=== PATIENT | female | born 2000 | race Two or more races ===

== ENCOUNTER 2018-05-03 16:27 | Emergency (ER) | payer MEDICAID ==
[~2018-05-03] VITALS: Ht 160 cm; Wt 86.6 kg
[2018-05-03 22:35] VITALS: BP 110/61
== END 2018-05-03 22:45 | disposition home or self-care (01) ==
LOC: ER 16:27
DX: J03.80 Acute tonsillitis due to other specified organisms (principal); B96.89 Other specified bacterial agents as the cause of diseases classified elsewhere

== ENCOUNTER 2018-10-06 19:43 | Observation (INO) | payer MEDICAID ==
[~2018-10-06] VITALS: Ht 160 cm; Wt 102.1 kg
== END 2018-10-06 20:51 | disposition home or self-care (01) | DRG 566 ==
LOC: LDRP 19:43
PROVIDERS: ADMIT Obstetrics & Gynecology; ATTEND Obstetrics & Gynecology
DX: O26.893 Other specified pregnancy related conditions, third trimester (principal); F17.200 Nicotine dependence, unspecified, uncomplicated; R10.2 Pelvic and perineal pain; O99.333 Smoking (tobacco) complicating pregnancy, third trimester; Z3A.39 39 weeks gestation of pregnancy
CPT/HCPCS: 59025; 81002; G0378

== ENCOUNTER → 2019-10-25 | Outpatient (CLI) | payer MEDICAID ==
[~2019-10-25] MED LIST: PREN-96 PO
== END | disposition home or self-care (01) ==
LOC: LDRP 19:22 → UNDOADMOB 19:22 → UNDODISOB 19:50 → OB 19:58 → EDSTATUS 11-09 09:10
PROVIDERS: ATTEND Specialist
DX: Z01.812 Encounter for preprocedural laboratory examination (principal); Z20.828 Contact with and (suspected) exposure to other viral communicable diseases
CPT/HCPCS: G0378

== ENCOUNTER 2019-10-28 04:09 | Inpatient (IN) | payer MEDICAID ==
[2019-10-28] VITALS (15 sets, daily range): BP systolic 99–119; BP diastolic 43–94
[~2019-10-28] VITALS: Ht 160 cm; Wt 106.6 kg
[2019-10-28] MEDS ORDERED: LACTATED RINGER'S 1,000 ML IV SCH (04:26)
[2019-10-28 05:09] LABS: Basophils # (auto) 0.1 10 ^3/uL (0-0.2); Basophils % (auto) 0.8 % (0.0-2.0); Eosinophils # (auto) 0.1 10 ^3/uL (0-0.8); Eosinophils % (auto) 1.6 % (0.0-7.0); Hemoglobin 9.2 g/dL (12.2-16.2); Lymphocytes # (auto) 1.7 10 ^3/uL (0.4-5.4); Lymphocytes % (auto) 20.9 % (10.0-50.0); Mean Corpuscular Hemoglobin 22.8 pg (28.0-32.0); Mean Corpuscular Hgb Conc. 31.6 g/dL (32.0-36.0); Monocytes # (auto) 0.4 10 ^3/uL (0-1.3); Monocytes % (auto) 5.1 % (0.0-12.0); Neutrophils # (auto) 5.9 10 ^3/uL (1.6-8.6); Neutrophils % (auto) 71.6 % (37.0-80.0); Nucleated Red Blood Cells % 0.1 %; Platelet Count (auto) 394 10^3/uL (140-450); Red Blood Cells 4.02 10^6/uL (4.0-5.20); White Blood Cell 8.2 10^3/uL (4.4-10.8)
[2019-10-28 05:16] LABS: Urine Bacteria FEW /hpf (None Seen); Urine Blood Negative /uL (Negative); Urine Mucus FEW (None Seen); Urine Specific Gravity 1.022 (1.001-1.035); Urine WBC 10 /hpf (0 - 5)
[2019-10-28 05:24] LABS: INR 0.93 (0.9-1.15); Partial Thromboplastin Time 25.4 sec (23.0-31.2)
[2019-10-28 05:26] LABS: Albumin 2.4 g/dL (3.4-5.0); Calcium 8.2 mg/dL (8.5-10.1); Potassium 3.5 mmol/L (3.5-5.1)
[2019-10-28 05:30] LABS: Bilirubin, Total 0.2 mg/dL (0.2-1.0); Total Protein 6.8 g/dL (6.4-8.2)
[2019-10-28 05:31] LABS: Alcohol, Urine < 3.0 mg/dL (0-10); Amphetamine Screen, Urine NEGATIVE (NEGATIVE); Barbiturate Scree,Urine NEGATIVE (NEGATIVE); Benzodiazephine Screen, Urine NEGATIVE (NEGATIVE); Cannabinoid Screen, Urine NEGATIVE (NEGATIVE); Cocaine Screen, Urine NEGATIVE (NEGATIVE); Opiate Scree,Urine NEGATIVE (NEGATIVE); Phencyclidine Screen, Urine NEGATIVE (NEGATIVE)
[2019-10-28] MEDS ORDERED: MORPHINE SULF(PF) 0.5MG/ML 10ML VIAL ONE (07:39)
[2019-10-28] MEDS ORDERED: oxyTOCIN 10 UNIT/ML 10ML VIAL ONE (07:41)
[2019-10-28] MEDS ORDERED: PHENYLEPHRINE HCL 10 MG/ML VL ONE (07:41)
[2019-10-28] MEDS ORDERED: ePHEDrine SULFATE 50 MG/ML AMP ONE (07:41)
[2019-10-28] MEDS ORDERED: ceFAZolin 1GM VL ONE (07:41)
[2019-10-28] MEDS ORDERED: TETRACAINE 1% INJ 2 ML VIAL IJ ONE (07:42)
[2019-10-28] MEDS ORDERED: METOCLOPRAMIDE HCL 5MG/ml INJ 2ml VIAL ONE ×2 (08:41→11:02)
[2019-10-28] MEDS ORDERED: NALOXONE HCL 0.4 MG/ML VIAL IV PRN ×2 (09:15)
[2019-10-28] MEDS ORDERED: KETOROLAC TROMETH 30 MG/ML 1ML VIAL IV PRN ×2 (09:15→09:45)
[2019-10-28] MEDS ORDERED: diphenhdrAMINE HCL 50 MG/1 ML VL IV PRN (09:15)
[2019-10-28] MEDS ORDERED: HYDROmorphone HCL 2 MG/ML VL IV PRN ×2 (09:15→09:45)
[2019-10-28] MEDS ORDERED: ONDANSETRON HCL 4 MG/2 ML VIAL IV PRN ×3 (09:15→14:00)
[2019-10-28] MEDS: LACTATED RINGER'S 1,000 ML IV SCH ×2 (09:43→20:41)
[2019-10-28] MEDS ORDERED: ceFAZolin 1GM/50ML 50 ML IV SCH (09:45)
--- NOTE | 2019-10-28 10:30 | NUR ---
Post Op for LDRP: Received patient from PACU via bed to room . Patient A/A/Ox4, abdominal binder and bilateral SCD's are in place, IV fluids placed on pump and infusing per order, incisional site dressing clean/dry/intact and Torrez Catheter to gravity draining clear yellow urine. Incentive Spirometer at bedside and instruction on proper use with return demonstration done by patient.
[2019-10-28] MEDS ORDERED: ETOMIDATE (2MG/ML) 20ML VIAL IV ONE (10:42)
[2019-10-28] MEDS ORDERED: ROCURONIUM 10MG/ML 10ML VIAL IV ONE (10:44)
[2019-10-28] MEDS ORDERED: MIDAZOLAM HCL 1MG/1ML-2 ML VIAL ONE (11:00)
[2019-10-28] MEDS ORDERED: fentaNYL CITRATE 100 MCG/2 ML VL ONE (11:11)
[2019-10-28] MEDS: ceFAZolin 1GM/50ML 50 ML IV SCH (16:56)
--- NOTE | 2019-10-28 21:45 | NUR ---
Ambulation: Patient OOB with standby assistance by RN. Patient ambulated to bathroom with steady gait. Torrez catheter remains in place draining clear yellow urine. Pericare teaching provided with returned demonstration by patient. Clean gown provided and bed linen changed. Patient continues to ambulate in room with steady gait. No pain or distress noted.
[2019-10-29] MEDS: ceFAZolin 1GM/50ML 50 ML IV SCH ×2 (00:30→08:44)
[2019-10-29 03:07] VITALS: BP 116/57
--- NOTE | 2019-10-29 03:10 | NUR ---
Torrez catheter removed. Patient tolerated well. Will continue to monitor.
[2019-10-29 05:06] LABS: RPR Non Reactive (Non Reactive)
[2019-10-29 07:20] VITALS: BP 98/41
[2019-10-29 07:41] LABS: Basophils # (auto) 0.1 10 ^3/uL (0-0.2); Eosinophils # (auto) 0.1 10 ^3/uL (0-0.8); Hemoglobin 8.8 g/dL (12.2-16.2); Lymphocytes # (auto) 1.1 10 ^3/uL (0.4-5.4); Monocytes # (auto) 0.4 10 ^3/uL (0-1.3); Red Cell Distribution Width 16.8 % (11.8-14.3)
[2019-10-29 07:42] LABS: Basophils % (auto) 0.6 % (0.0-2.0); Eosinophils % (auto) 0.9 % (0.0-7.0); Hematocrit 28.6 % (36.0-46.0); Lymphocytes % (auto) 13.5 % (10.0-50.0); Mean Corpuscular Hemoglobin 22.5 pg (28.0-32.0); Mean Corpuscular Hgb Conc. 30.8 g/dL (32.0-36.0); Monocytes % (auto) 5.1 % (0.0-12.0); Neutrophils # (auto) 6.6 10 ^3/uL (1.6-8.6); Neutrophils % (auto) 79.9 % (37.0-80.0); Nucleated Red Blood Cells % 0.1 %; Platelet Count (auto) 369 10^3/uL (140-450); Red Blood Cells 3.92 10^6/uL (4.0-5.20); White Blood Cell 8.3 10^3/uL (4.4-10.8)
[2019-10-29] MEDS ORDERED: SIMETHICONE 80 MG CHEWABLE TABLET PO PRN (08:15)
[2019-10-29] MEDS: DOCUSATE SOD 100 MG CAP PO SCH ×2 (10:00→21:53)
[2019-10-29 11:00] VITALS: BP 119/58
[2019-10-29] MEDS: IBUPROFEN 800 MG TAB PO PRN ×2 (13:00→23:06)
[2019-10-29] MEDS: HYDROcodone-ACET 5/325MG TAB PO PRN ×2 (15:06→19:23)
[2019-10-29 15:18] VITALS: BP 119/72
[2019-10-29 19:10] VITALS: BP 118/50
[2019-10-29 23:13] VITALS: BP 120/65
[2019-10-30] MEDS: HYDROcodone-ACET 5/325MG TAB PO PRN ×4 (03:10→22:24)
[2019-10-30 03:16] VITALS: BP 114/62
--- NOTE | 2019-10-30 05:29 | NUR ---
Education This RN enters patients room, Infant sleeping in bed with mother. Educated patient and her mother that need to sleep in open crib. Informed of hospital policy and at risk for SIDS. Patient verbalized understanding and agrees place in open crib for sleeping.
[2019-10-30 07:28] VITALS: BP 123/69
[2019-10-30 10:30] VITALS: BP 124/86
[2019-10-30] MEDS: DOCUSATE SOD 100 MG CAP PO SCH ×2 (11:47→22:23)
[2019-10-30 15:30] VITALS: BP 125/81
[2019-10-30 19:00] VITALS: BP 132/69
[2019-10-30 22:30] VITALS: BP 132/80
[2019-10-31 03:30] VITALS: BP 134/80
[2019-10-31 06:30] VITALS: BP 111/72
--- NOTE | 2019-10-31 07:00 | NUR ---
Educated patient on need to use IS 10x hour and deep breath to prevent pneumonia. educated on how to use IS. Verbalized understanding. Demonstrated proper technique. Addendum: 10/31/19 at 0817 by DOUGLAS EDWARDS RN Amended: Links added.
[2019-10-31] MEDS: HYDROcodone-ACET 5/325MG TAB PO PRN (08:17)
--- NOTE | 2019-10-31 09:30 | NUR ---
Discharge: Discharge instructions given as ordered. Pt encouraged to follow up with [employer] [facility] as instructed, appointment made with Dr Gamble. All questions and concerns addressed. Patient verbalized understanding. Medication reconciliation completed and copy given to patient. Prescription for norco given. All required/requested vaccines given and copies of vaccinations given to patient. Patient encouraged to prepare to depart unit.
[2019-10-31] MEDS: DOCUSATE SOD 100 MG CAP PO SCH (09:38)
[2019-10-31] MEDS: IBUPROFEN 800 MG TAB PO PRN (09:49)
--- NOTE | 2019-10-31 10:13 | NUR ---
Discharge: Patient taken to vehicle via ambulation with all personal belongings and discharge paperwork, accompanied by staff and family member. No distress noted at time of departure, no adverse changes in status since initial assessment.
== END 2019-10-31 10:13 | disposition home or self-care (01) | DRG 540 ==
LOC: LDRP 04:09
PROVIDERS: ADMIT Specialist; ATTEND Specialist
PROC: 10D00Z1 Extraction of Products of Conception, Low, Open Approach (ICD-10-PCS; principal; 2019-10-28 08:17)
DX: O69.81X0 Labor and delivery complicated by cord around neck, without compression, not applicable or unspecified (principal); O34.211 Maternal care for low transverse scar from previous cesarean delivery; O99.214 Obesity complicating childbirth; E66.9 Obesity, unspecified; O99.62 Diseases of the digestive system complicating childbirth; K21.9 Gastro-esophageal reflux disease without esophagitis; Z37.0 Single live birth; Z3A.39 39 weeks gestation of pregnancy; O99.02 Anemia complicating childbirth
CPT/HCPCS: 36415; 80053; 80307; 81001; 81002; 84112; 85025; 85610; 85730; 86592; 86850; 86900; 86901; 86920; 94760; 96360; 96361; G0378; J0690; J1885; J2250; J2405; J2590

== ENCOUNTER 2020-09-25 18:42 | Emergency (ER) | payer MEDICAID ==
[~2020-09-25] VITALS: Ht 160 cm; Wt 104.3 kg
[2020-09-25 18:44] VITALS: BP 141/67
[2020-09-25 19:11] LABS: Urine Bacteria FEW /hpf (None Seen); Urine Blood 3+ /uL (Negative); Urine Specific Gravity 1.018 (1.001-1.035); Urine WBC 95 /hpf (0 - 5)
[2020-09-25 19:12] LABS: Basophils # (auto) 0.1 10 ^3/uL (0-0.2); Basophils % (auto) 1.2 % (0.0-2.0); Eosinophils # (auto) 0.2 10 ^3/uL (0-0.8); Eosinophils % (auto) 1.5 % (0.0-7.0); Hematocrit 32.3 % (36.0-46.0); Hemoglobin 10.1 g/dL (12.2-16.2); Lymphocytes # (auto) 1.9 10 ^3/uL (0.4-5.4); Lymphocytes % (auto) 17.2 % (10.0-50.0); Mean Corpuscular Hemoglobin 21.2 pg (28.0-32.0); Mean Corpuscular Hgb Conc. 31.3 g/dL (32.0-36.0); Mean Corpuscular Volume 67.5 fL (80.0-100.0); Monocytes # (auto) 0.7 10 ^3/uL (0-1.3); Neutrophils # (auto) 8.3 10 ^3/uL (1.6-8.6); Neutrophils % (auto) 74.1 % (37.0-80.0); Platelet Count (auto) 396 10^3/uL (140-450); Red Blood Cells 4.78 10^6/uL (4.0-5.20); Red Cell Distribution Width 19.3 % (11.8-14.3); White Blood Cell 11.2 10^3/uL (4.4-10.8)
[2020-09-25 19:24] LABS: Albumin 3.1 g/dL (3.4-5.0); Calcium 8.2 mg/dL (8.5-10.1); Potassium 3.6 mmol/L (3.5-5.1)
[2020-09-25 19:35] LABS: BUN/Creatinine Ratio 12.5; Bilirubin, Total 0.2 mg/dL (0.2-1.0); Total Protein 7.4 g/dL (6.4-8.2)
== END 2020-09-25 21:53 | disposition home or self-care (01) ==
LOC: ER 18:43
DX: O20.0 Threatened abortion (principal); O23.41 Unspecified infection of urinary tract in pregnancy, first trimester; Z3A.10 10 weeks gestation of pregnancy
CPT/HCPCS: 36415; 76801; 80053; 81001; 84702; 85025; 85049

== ENCOUNTER 2020-10-08 10:46 | Emergency (ER) | payer MEDICAID ==
[~2020-10-08] VITALS: Ht 160 cm; Wt 104.3 kg
[2020-10-08 10:59] VITALS: BP 121/68
[2020-10-08 11:23] LABS: Basophils # (auto) 0.1 10 ^3/uL (0-0.2); Basophils % (auto) 0.9 % (0.0-2.0); Eosinophils # (auto) 0.1 10 ^3/uL (0-0.8); Lymphocytes # (auto) 1.6 10 ^3/uL (0.4-5.4)
[2020-10-08 11:24] LABS: Eosinophils % (auto) 1.7 % (0.0-7.0); Hematocrit 31.6 % (36.0-46.0); Hemoglobin 9.8 g/dL (12.2-16.2); Mean Corpuscular Hemoglobin 20.9 pg (28.0-32.0); Mean Corpuscular Hgb Conc. 31.2 g/dL (32.0-36.0); Monocytes # (auto) 0.5 10 ^3/uL (0-1.3); Monocytes % (auto) 5.7 % (0.0-12.0); Neutrophils # (auto) 5.9 10 ^3/uL (1.6-8.6); Neutrophils % (auto) 71.7 % (37.0-80.0); Red Blood Cells 4.71 10^6/uL (4.0-5.20); Red Cell Distribution Width 19.2 % (11.8-14.3); White Blood Cell 8.2 10^3/uL (4.4-10.8)
[2020-10-08 11:51] LABS: Calcium 8.3 mg/dL (8.5-10.1); Potassium 3.5 mmol/L (3.5-5.1)
[2020-10-08 11:57] LABS: Albumin 2.9 g/dL (3.4-5.0); BUN/Creatinine Ratio 14.3; Bilirubin, Total 0.4 mg/dL (0.2-1.0); Total Protein 7.2 g/dL (6.4-8.2)
[2020-10-08 13:46] LABS: Urine Bacteria MOD /hpf (None Seen); Urine Blood 3+ /uL (Negative); Urine Mucus FEW (None Seen); Urine Specific Gravity 1.023 (1.001-1.035); Urine WBC 145 /hpf (0 - 5)
== END 2020-10-08 14:01 | disposition home or self-care (01) ==
LOC: ER 10:46
DX: O23.41 Unspecified infection of urinary tract in pregnancy, first trimester (principal); Z79.899 Other long term (current) drug therapy; Z3A.12 12 weeks gestation of pregnancy
CPT/HCPCS: 36415; 76801; 80053; 81001; 84702; 85025

== ENCOUNTER 2020-12-05 14:02 | Emergency (ER) | payer MEDICAID ==
[~2020-12-05] VITALS: Ht 160 cm; Wt 104.8 kg
[2020-12-05 14:02] VITALS: BP 99/62
== END 2020-12-05 15:24 | disposition left against medical advice (07) ==
LOC: ER 14:02
DX: Z34.82 Encounter for supervision of other normal pregnancy, second trimester (principal); Z53.21 Procedure and treatment not carried out due to patient leaving prior to being seen by health care provider

== ENCOUNTER 2021-03-27 14:04 | Emergency (ER) | payer MEDICAID ==
[~2021-03-27] VITALS: Ht 160 cm; Wt 106.6 kg
[2021-03-27 14:35] VITALS: BP 103/53
[2021-03-27] MEDS ORDERED: methylPREDNISolone SOD SUCC 125 MG/2 ML VL IM ONE (16:30)
[2021-03-27] MEDS ORDERED: cefTRIAXone SOD 1,000 MG VL IM ONE (16:30)
== END 2021-03-27 18:44 | disposition left against medical advice (07) ==
LOC: ER 14:04
DX: Z76.0 Encounter for issue of repeat prescription (principal); Z53.21 Procedure and treatment not carried out due to patient leaving prior to being seen by health care provider

== ENCOUNTER 2021-04-02 14:36 | Emergency (ER) | payer MEDICAID ==
[~2021-04-02] VITALS: Ht 160 cm; Wt 106.6 kg
[2021-04-02 16:14] VITALS: BP 128/61
[2021-04-02] MEDS ORDERED: PENICILLIN G BENZ 1200000 UNITS/2 ML SYRG IM ONE (16:30)
[2021-04-02] MEDS ORDERED: AMOX500T86 PO (16:39)
[2021-04-02] MEDS ORDERED: ACET-1080 PO (16:41)
== END 2021-04-02 16:46 | disposition home or self-care (01) ==
LOC: ER 14:36
DX: O98.113 Syphilis complicating pregnancy, third trimester (principal); J03.90 Acute tonsillitis, unspecified; Z79.2 Long term (current) use of antibiotics; Z79.899 Other long term (current) drug therapy; Z3A.37 37 weeks gestation of pregnancy
CPT/HCPCS: 96372; 99283; J0561

== ENCOUNTER 2021-04-04 11:09 | Observation (INO) | payer MEDICAID ==
[~2021-04-04 11:09] MED LIST changes: +ACET-1080 PO; +AMOX500T86 PO
== END 2021-04-04 13:34 | disposition home or self-care (01) ==
LOC: LDRP 11:09
PROVIDERS: ADMIT Obstetrics & Gynecology; ATTEND Obstetrics & Gynecology
DX: O98.113 Syphilis complicating pregnancy, third trimester (principal); A53.9 Syphilis, unspecified; Z3A.37 37 weeks gestation of pregnancy; Z98.891 History of uterine scar from previous surgery
CPT/HCPCS: 59025; 76818; 81002; G0378

== ENCOUNTER 2021-04-11 11:16 | Observation (INO) | payer MEDICAID ==
[2021-04-11] MEDS ORDERED: FERR-20 PO (15:07)
== END 2021-04-11 15:17 | disposition home or self-care (01) ==
LOC: LDRP 13:28
PROVIDERS: ADMIT Obstetrics & Gynecology; ATTEND Obstetrics & Gynecology
DX: O98.113 Syphilis complicating pregnancy, third trimester (principal); A53.9 Syphilis, unspecified; Z3A.38 38 weeks gestation of pregnancy; Z98.891 History of uterine scar from previous surgery
CPT/HCPCS: 59025; 76818; 81002; 94760; G0378; G0379

== ENCOUNTER 2021-04-13 14:00 | Outpatient (CLI) | payer MEDICAID ==
[~2021-04-13 14:00] MED LIST changes: +FERR-20 PO
[2021-04-13 15:32] LABS: Basophils # (auto) 0 10 ^3/uL (0-0.2); Basophils % (auto) 0.5 % (0.0-2.0); Hemoglobin 7.9 g/dL (12.2-16.2); Monocytes # (auto) 0.3 10 ^3/uL (0-1.3); Red Blood Cells 4.12 10^6/uL (4.0-5.20)
[2021-04-13 15:33] LABS: Eosinophils # (auto) 0 10 ^3/uL (0-0.8); Eosinophils % (auto) 0.5 % (0.0-7.0); Lymphocytes # (auto) 1.2 10 ^3/uL (0.4-5.4); Lymphocytes % (auto) 17.1 % (10.0-50.0); Mean Corpuscular Hemoglobin 19.1 pg (28.0-32.0); Mean Corpuscular Hgb Conc. 30.3 g/dL (32.0-36.0); Mean Corpuscular Volume 63.1 fL (80.0-100.0); Monocytes % (auto) 3.8 % (0.0-12.0); Neutrophils # (auto) 5.4 10 ^3/uL (1.6-8.6); Neutrophils % (auto) 78.1 % (37.0-80.0); Nucleated Red Blood Cells % 0.2 %; Red Cell Distribution Width 19.5 % (11.8-14.3); White Blood Cell 6.9 10^3/uL (4.4-10.8)
== END 2021-04-13 15:09 | disposition home or self-care (01) ==
LOC: LAB 14:00 → UNDOADMOB 14:02 → LDRP 14:02 → UNDODISOB 15:06 → LAB 15:09 → EDSTATUS 05-01 10:32
PROVIDERS: ATTEND Obstetrics & Gynecology
DX: Z20.822 Contact with and (suspected) exposure to COVID-19 (principal)
CPT/HCPCS: 36415; 85025; U0003; G0378

== ENCOUNTER 2021-04-15 05:15 | Inpatient (IN) | payer MEDICAID ==
[2021-04-15] VITALS (9 sets, daily range): BP systolic 104–124; BP diastolic 53–84
[~2021-04-15] VITALS: Ht 160 cm; Wt 105.2 kg
[2021-04-15] MEDS ORDERED: LACTATED RINGER'S 1,000 ML IV ONE (05:30)
[2021-04-15 06:59] LABS: Basophils # (auto) 0.1 10 ^3/uL (0-0.2); Eosinophils # (auto) 0.1 10 ^3/uL (0-0.8); Hemoglobin 7.2 g/dL (12.2-16.2); Nucleated Red Blood Cells % 0.1 %; White Blood Cell 7.5 10^3/uL (4.4-10.8)
[2021-04-15 07:01] LABS: Urine Bacteria FEW /hpf (None Seen); Urine Blood TRACE /uL (Negative); Urine Specific Gravity 1.025 (1.001-1.035); Urine WBC 90 /hpf (0 - 5)
[2021-04-15 07:03] LABS: Basophils % (auto) 0.8 % (0.0-2.0); Eosinophils % (auto) 0.8 % (0.0-7.0); Hematocrit 23.5 % (36.0-46.0); Lymphocytes # (auto) 1.7 10 ^3/uL (0.4-5.4); Lymphocytes % (auto) 22.8 % (10.0-50.0); Mean Corpuscular Hemoglobin 19.5 pg (28.0-32.0); Mean Corpuscular Hgb Conc. 30.7 g/dL (32.0-36.0); Mean Corpuscular Volume 63.4 fL (80.0-100.0); Monocytes # (auto) 0.4 10 ^3/uL (0-1.3); Monocytes % (auto) 4.7 % (0.0-12.0); Neutrophils # (auto) 5.3 10 ^3/uL (1.6-8.6); Neutrophils % (auto) 70.9 % (37.0-80.0); Red Cell Distribution Width 19.3 % (11.8-14.3)
[2021-04-15 07:08] LABS: INR 0.96 (0.9-1.15); Partial Thromboplastin Time 24.4 sec (23.6-33.0)
[2021-04-15 07:11] LABS: Albumin 2.5 g/dL (3.4-5.0); Calcium 8.2 mg/dL (8.5-10.1); Potassium 3.6 mmol/L (3.5-5.1)
[2021-04-15] MEDS ORDERED: ONDANSETRON HCL 4 MG/2 ML VIAL IV ONE (07:15)
[2021-04-15 07:17] LABS: BUN/Creatinine Ratio 12.5; Bilirubin, Total 0.3 mg/dL (0.2-1.0); Total Protein 6.8 g/dL (6.4-8.2)
[2021-04-15] MEDS: LACTATED RINGER'S 1,000 ML IV SCH ×2 (07:27→13:17)
[2021-04-15] MEDS ORDERED: ceFAZolin 1GM/50ML 50 ML IV ONE ×3 (07:30→16:00)
[2021-04-15 07:45] LABS: Alcohol, Urine < 3.0 mg/dL (0-10); Amphetamine Screen, Urine NEGATIVE (NEGATIVE); Barbiturate Scree,Urine NEGATIVE (NEGATIVE); Benzodiazephine Screen, Urine NEGATIVE (NEGATIVE); Cannabinoid Screen, Urine NEGATIVE (NEGATIVE); Cocaine Screen, Urine NEGATIVE (NEGATIVE); Opiate Scree,Urine NEGATIVE (NEGATIVE); Phencyclidine Screen, Urine NEGATIVE (NEGATIVE)
[2021-04-15] MEDS ORDERED: ceFAZolin 1GM VL ONE (07:50)
[2021-04-15] MEDS ORDERED: TETRACAINE 1% INJ 2 ML VIAL IJ ONE (07:52)
[2021-04-15] MEDS ORDERED: fentaNYL CITRATE 100 MCG/2 ML VL ONE (07:55)
[2021-04-15] MEDS ORDERED: MIDAZOLAM HCL 2MG/2ML 2ml VIAL (1mg/ml) ONE (07:55)
[2021-04-15] MEDS ORDERED: oxyTOCIN 10 UNIT/ML 10ML VIAL ONE (08:15)
[2021-04-15] MEDS ORDERED: KETOROLAC TROMETH 30 MG/ML 1ML VIAL IV ONE (09:45)
[2021-04-15] MEDS ORDERED: ONDANSETRON HCL 4 MG/2 ML VIAL IV PRN ×2 (09:45→10:30)
[2021-04-15] MEDS ORDERED: MIDAZOLAM HCL 2MG/2ML 2ml VIAL (1mg/ml) IV PRN (09:45)
[2021-04-15] MEDS ORDERED: MORPHINE SULFATE INJECTION 2 MG/ML SYRG IV PRN (09:45)
[2021-04-15] MEDS ORDERED: HYDROmorphone HCL 2 MG/ML VL IV PRN (09:45)
[2021-04-15] MEDS ORDERED: fentaNYL CITRATE 100 MCG/2 ML VL IV PRN (09:45)
[2021-04-15] MEDS ORDERED: LABETALOL HCL 5 MG/ML 4ML SYRINGE IV PRN (09:45)
[2021-04-15] MEDS ORDERED: ePHEDrine SULFATE 50 MG/ML AMP IV PRN (09:45)
[2021-04-15] MEDS ORDERED: SIMETHICONE 80 MG CHEWABLE TABLET PO PRN (10:30)
[2021-04-15] MEDS ORDERED: GUM (CHEWING) 1 GUM CHEW CHEW ONE (10:30)
[2021-04-15] MEDS ORDERED: MORPHINE SULFATE 4 MG/ML SYR/VIAL IV PRN (12:15)
[2021-04-15] MEDS ORDERED: KETOROLAC TROMETH 30 MG/ML 1ML VIAL IV PRN (12:15)
[2021-04-15] MEDS: MORPHINE SULFATE INJECTION 2 MG/ML SYRG IV PRN ×3 (13:18→22:59)
[2021-04-15] MEDS: KETOROLAC TROMETH 30 MG/ML 1ML VIAL IV PRN (19:10)
[2021-04-15 19:18] LABS: Basophils # (auto) 0.1 10 ^3/uL (0-0.2); Hematocrit 28.9 % (36.0-46.0); Mean Corpuscular Hemoglobin 20.6 pg (28.0-32.0); Monocytes # (auto) 0.5 10 ^3/uL (0-1.3); White Blood Cell 8.9 10^3/uL (4.4-10.8)
[2021-04-15 19:19] LABS: Basophils % (auto) 0.6 % (0.0-2.0); Eosinophils # (auto) 0.1 10 ^3/uL (0-0.8); Eosinophils % (auto) 0.6 % (0.0-7.0); Lymphocytes # (auto) 1.3 10 ^3/uL (0.4-5.4); Mean Corpuscular Hgb Conc. 31.1 g/dL (32.0-36.0); Mean Corpuscular Volume 66.3 fL (80.0-100.0); Monocytes % (auto) 5.2 % (0.0-12.0); Neutrophils % (auto) 78.6 % (37.0-80.0); Red Blood Cells 4.36 10^6/uL (4.0-5.20)
[2021-04-15 19:21] LABS: Red Cell Distribution Width 21.5 % (11.8-14.3)
[2021-04-15] MEDS: ONDANSETRON HCL 4 MG/2 ML VIAL IV PRN (22:59)
[2021-04-15] MEDS: DOCUSATE SOD 100 MG CAP PO SCH (23:00)
[2021-04-16] MEDS: KETOROLAC TROMETH 30 MG/ML 1ML VIAL IV PRN (02:22)
[2021-04-16 03:00] VITALS: BP 116/70
[2021-04-16] MEDS: ONDANSETRON HCL 4 MG/2 ML VIAL IV PRN (04:33)
[2021-04-16] MEDS: MORPHINE SULFATE INJECTION 2 MG/ML SYRG IV PRN (04:34)
[2021-04-16] MEDS ORDERED: HYDROcodone-ACET 5/325MG TAB PO PRN (06:00)
[2021-04-16] MEDS: IBUPROFEN 600 MG TAB PO SCH ×3 (06:01→18:04)
[2021-04-16 06:54] LABS: Eosinophils # (auto) 0.1 10 ^3/uL (0-0.8); Monocytes # (auto) 0.5 10 ^3/uL (0-1.3)
[2021-04-16 06:58] LABS: Basophils # (auto) 0 10 ^3/uL (0-0.2); Basophils % (auto) 0.6 % (0.0-2.0); Hematocrit 26.9 % (36.0-46.0); Hemoglobin 8.6 g/dL (12.2-16.2); Lymphocytes # (auto) 1.3 10 ^3/uL (0.4-5.4); Lymphocytes % (auto) 16.1 % (10.0-50.0); Mean Corpuscular Hemoglobin 21.1 pg (28.0-32.0); Mean Corpuscular Volume 66.1 fL (80.0-100.0); Neutrophils # (auto) 6.2 10 ^3/uL (1.6-8.6); Neutrophils % (auto) 76.3 % (37.0-80.0); Nucleated Red Blood Cells % 0.1 %; Red Blood Cells 4.07 10^6/uL (4.0-5.20); Red Cell Distribution Width 21.8 % (11.8-14.3); White Blood Cell 8.1 10^3/uL (4.4-10.8)
[2021-04-16 07:00] VITALS: BP 118/73
[2021-04-16 11:03] VITALS: BP 124/73
[2021-04-16] MEDS: HYDROcodone-ACET 5/325MG TAB PO PRN (13:54)
[2021-04-16 15:00] VITALS: BP 138/74
[2021-04-16 18:45] VITALS: BP 122/74
[2021-04-16 23:18] VITALS: BP 114/56
[2021-04-16] MEDS: DOCUSATE SOD 100 MG CAP PO SCH (23:25)
[2021-04-17] MEDS: IBUPROFEN 600 MG TAB PO SCH ×4 (06:27→18:30)
[2021-04-17 06:34] VITALS: BP 119/71
[2021-04-17] MEDS: HYDROcodone-ACET 5/325MG TAB PO PRN ×3 (08:06→23:09)
[2021-04-17 10:47] VITALS: BP 109/50
[2021-04-17 14:53] VITALS: BP 121/69
[2021-04-17 19:30] VITALS: BP 126/64
[2021-04-17] MEDS: DOCUSATE SOD 100 MG CAP PO SCH (22:54)
[2021-04-17 23:00] VITALS: BP 127/71
[2021-04-18 03:17] VITALS: BP 116/75
[2021-04-18] MEDS: IBUPROFEN 600 MG TAB PO SCH ×3 (06:00→12:41)
[2021-04-18 07:30] VITALS: BP 119/84
[2021-04-18 10:45] VITALS: BP 106/65
[2021-04-18] MEDS ORDERED: IBUP800T27 PO (12:37)
[2021-04-18] MEDS ORDERED: HYDR-4902 PO (12:37)
[2021-04-18] MEDS ORDERED: FER325T PO (12:37)
[2021-04-18] MEDS ORDERED: DOCU-94 PO (12:37)
[2021-04-18 13:59] VITALS: BP 127/89
== END 2021-04-18 14:11 | disposition home or self-care (01) | DRG 540 ==
LOC: LDRP 05:15
PROVIDERS: ADMIT Obstetrics & Gynecology Obstetrics; ATTEND Obstetrics & Gynecology Obstetrics
PROC: 30233N1 Transfusion of Nonautologous Red Blood Cells into Peripheral Vein, Percutaneous Approach (ICD-10-PCS; 2021-04-15)
PROC: 10D00Z1 Extraction of Products of Conception, Low, Open Approach (ICD-10-PCS; principal; 2021-04-15 08:01)
DX: O98.12 Syphilis complicating childbirth (principal); A53.0 Latent syphilis, unspecified as early or late; O75.82 Onset (spontaneous) of labor after 37 completed weeks of gestation but before 39 completed weeks gestation, with delivery by (planned) cesarean section; O34.211 Maternal care for low transverse scar from previous cesarean delivery; O90.81 Anemia of the puerperium; O99.345 Other mental disorders complicating the puerperium; F53.0 Postpartum depression; Z37.0 Single live birth; Z3A.39 39 weeks gestation of pregnancy
CPT/HCPCS: 36415; 59025; 80053; 80307; 81001; 85025; 85610; 85730; 86592; 86850; 86900; 86901; 86920; 94760; 96360; 96361; G0378; J0690; J1885; J2250; J2405; J2590

== ENCOUNTER 2021-05-10 13:36 | Inpatient (IN) | payer MEDICAID ==
[~2021-05-10] VITALS: Ht 160 cm; Wt 107.5 kg
[~2021-05-10 13:36] MED LIST changes: +DOCU-94 PO; +FER325T PO; +HYDR-4902 PO; +IBUP800T27 PO
[2021-05-10] MEDS ORDERED: ALUM & MAG HYDROX-SIMETH LIQ(MAALOX) 30 ML PO ONE (14:15)
[2021-05-10] MEDS ORDERED: ONDANSETRON HCL 4 MG/2 ML VIAL IV ONE (14:15)
[2021-05-10] MEDS ORDERED: FAMOTIDINE (10MG/ML) 2ML VL IV ONE (14:15)
[2021-05-10] MEDS ORDERED: LIDOCAINE VISCOUS 2% 15ML UD PO ONE (14:15)
[2021-05-10] MEDS ORDERED: SODIUM CHLORIDE 0.9% 1,000 ML IV ONE (14:15)
[2021-05-10 14:20] LABS: Basophils # (auto) 0.1 10 ^3/uL (0-0.2); Basophils % (auto) 0.7 % (0.0-2.0); Eosinophils # (auto) 0.3 10 ^3/uL (0-0.8); Eosinophils % (auto) 3.6 % (0.0-7.0); Hematocrit 31.6 % (36.0-46.0); Hemoglobin 9.7 g/dL (12.2-16.2); Lymphocytes # (auto) 1.4 10 ^3/uL (0.4-5.4); Lymphocytes % (auto) 15.7 % (10.0-50.0); Mean Corpuscular Hgb Conc. 30.6 g/dL (32.0-36.0); Mean Corpuscular Volume 68.5 fL (80.0-100.0); Monocytes # (auto) 0.5 10 ^3/uL (0-1.3); Monocytes % (auto) 5.2 % (0.0-12.0); Neutrophils # (auto) 6.6 10 ^3/uL (1.6-8.6); Neutrophils % (auto) 74.8 % (37.0-80.0); Nucleated Red Blood Cells % 0.1 %; Red Blood Cells 4.61 10^6/uL (4.0-5.20); Red Cell Distribution Width 23.3 % (11.8-14.3); White Blood Cell 8.8 10^3/uL (4.4-10.8)
[2021-05-10] MEDS ORDERED: MORPHINE SULFATE INJECTION 2 MG/ML SYRG IV ONE (14:30)
[2021-05-10 14:46] LABS: Albumin 3.3 g/dL (3.4-5.0); BUN/Creatinine Ratio 10.8; Calcium 8.7 mg/dL (8.5-10.1); Potassium 3.4 mmol/L (3.5-5.1)
[2021-05-10 14:49] LABS: Bilirubin, Total 0.4 mg/dL (0.2-1.0); Total Protein 7.6 g/dL (6.4-8.2)
[2021-05-10] MEDS ORDERED: cefTRIAXone 1GM/50ML D5W 50 ML IV ONE (17:30)
[2021-05-10] MEDS ORDERED: metroNIDAZOLE 500MG/100ML 100 ML IV ONE (17:30)
[2021-05-10] MEDS ORDERED: IOHEXOL 300 MG/ML 100ML BOTTLE IJ ONE (20:28)
[2021-05-10] MEDS ORDERED: ENOXAPARIN SOD 40 MG/0.4 ML SYRINGE SC ONE (21:30)
[2021-05-10] MEDS ORDERED: ONDANSETRON HCL 4 MG/2 ML VIAL IV PRN (21:30)
[2021-05-10] MEDS ORDERED: NITROGLYCERIN 0.4 MG SL TAB SL PRN (21:30)
[2021-05-10] MEDS ORDERED: PANTOPRAZOLE 40 MG/10 ML VIAL INJ IV ONE (21:30)
[2021-05-10] MEDS: SODIUM CHLORIDE 0.9% 1,000 ML IV SCH (21:59)
[2021-05-10 23:12] LABS: INR 1.01 (0.9-1.15)
[2021-05-11] VITALS (7 sets, daily range): BP systolic 102–126; BP diastolic 55–88
[2021-05-11] MEDS ORDERED: POTASSIUM CHL 10MEQ/50ML 50 ML IV SCH
[2021-05-11] MEDS ORDERED: POTASSIUM CHL 20 Meq TABLET PO ONE (00:45)
[2021-05-11] MEDS: SODIUM CHLORIDE 0.9% 1,000 ML IV SCH ×3 (05:21→21:30)
[2021-05-11] MEDS: PIPERACILLIN-TAZOB 3.375GM 100 ML IV SCH ×4 (05:21→23:58)
[2021-05-11 08:06] LABS: Urine Bacteria NONE SEEN /hpf (None Seen); Urine Blood Negative /uL (Negative); Urine Specific Gravity > 1.050 (1.001-1.035); Urine WBC 4 /hpf (0 - 5)
[2021-05-11] MEDS ORDERED: BUPIVACAINE W/ EPINEPH 0.25% INJ 50ML MDV ONE (09:39)
[2021-05-11] MEDS ORDERED: fentaNYL CITRATE 100 MCG/2 ML VL ONE ×2 (09:45→10:50)
[2021-05-11] MEDS ORDERED: MIDAZOLAM HCL 2MG/2ML 2ml VIAL (1mg/ml) ONE (09:46)
[2021-05-11] MEDS ORDERED: LIDOCAINE 1% HCL (LOCAL ANESTH.) INJ 20ML MDV ONE (09:48)
[2021-05-11] MEDS ORDERED: PROPOFOL 10 MG/ML 20 ML IV ONE (09:49)
[2021-05-11] MEDS ORDERED: SUCCINYLCHOLINE CHLORIDE 20 MG/ML 10ML VIAL IV ONE (09:51)
[2021-05-11] MEDS ORDERED: ROCURONIUM 10MG/ML 10ML VIAL IV ONE (09:57)
[2021-05-11] MEDS ORDERED: DexAMETHasone SOD PHOS 10MG/1ML VIAL INJ ONE (10:31)
[2021-05-11] MEDS ORDERED: ONDANSETRON HCL 4 MG/2 ML VIAL ONE (10:53)
[2021-05-11] MEDS ORDERED: GLYCOPYRROLATE 0.2 MG/ML 1ML VIAL ONE (10:55)
[2021-05-11] MEDS ORDERED: NEOSTIGMINE 1 MG/ML INJ (10mg/10ML VIAL) ONE (10:55)
[2021-05-11] MEDS ORDERED: LABETALOL HCL 5 MG/ML 4ML SYRINGE IV PRN (11:15)
[2021-05-11] MEDS ORDERED: HYDROmorphone HCL 2 MG/ML VL IV PRN (11:15)
[2021-05-11] MEDS ORDERED: METOCLOPRAMIDE HCL 5MG/ml INJ 2ml VIAL IV PRN (11:15)
[2021-05-11] MEDS: HYDROmorphone HCL 2 MG/ML VL IV PRN ×3 (11:20→16:32)
[2021-05-11] MEDS ORDERED: DOCU-94 PO (11:25)
[2021-05-11] MEDS: HYDROcodone-ACET 5/325MG TAB PO PRN (12:56)
[2021-05-12] MEDS: HYDROmorphone HCL 2 MG/ML VL IV PRN ×3 (00:30→15:45)
[2021-05-12 05:00] VITALS: BP 115/63
[2021-05-12] MEDS: SODIUM CHLORIDE 0.9% 1,000 ML IV SCH ×3 (05:23→21:30)
[2021-05-12] MEDS: PIPERACILLIN-TAZOB 3.375GM 100 ML IV SCH ×4 (05:48→22:37)
[2021-05-12 07:01] LABS: Basophils # (auto) 0 10 ^3/uL (0-0.2); Basophils % (auto) 0.3 % (0.0-2.0); Eosinophils # (auto) 0 10 ^3/uL (0-0.8); Eosinophils % (auto) 0.1 % (0.0-7.0); Hematocrit 29.4 % (36.0-46.0); Hemoglobin 9.1 g/dL (12.2-16.2); Lymphocytes % (auto) 12.7 % (10.0-50.0); Mean Corpuscular Hemoglobin 21.2 pg (28.0-32.0); Monocytes # (auto) 0.3 10 ^3/uL (0-1.3); Monocytes % (auto) 4.1 % (0.0-12.0); Neutrophils # (auto) 6.8 10 ^3/uL (1.6-8.6); Neutrophils % (auto) 82.8 % (37.0-80.0); Nucleated Red Blood Cells % 0.1 %; Red Blood Cells 4.31 10^6/uL (4.0-5.20); White Blood Cell 8.2 10^3/uL (4.4-10.8)
[2021-05-12 07:04] LABS: Mean Corpuscular Volume 68.3 fL (80.0-100.0); Red Cell Distribution Width 22.9 % (11.8-14.3)
[2021-05-12 07:15] LABS: Potassium 3.6 mmol/L (3.5-5.1)
[2021-05-12] MEDS ORDERED: DOCU-94 PO (07:15)
[2021-05-12] MEDS ORDERED: HYDR-4902 PO (07:15)
[2021-05-12 07:18] LABS: BUN/Creatinine Ratio 7.7; Calcium 9.6 mg/dL (8.5-10.1)
[2021-05-12 09:00] VITALS: BP 109/65
[2021-05-12 13:00] VITALS: BP 109/56
[2021-05-12 17:00] VITALS: BP 108/45
[2021-05-12 22:00] VITALS: BP 116/56
[2021-05-13] MEDS: HYDROmorphone HCL 2 MG/ML VL IV PRN (00:16)
[2021-05-13 05:00] VITALS: BP 123/77
[2021-05-13] MEDS: SODIUM CHLORIDE 0.9% 1,000 ML IV SCH (05:34)
[2021-05-13 05:44] VITALS: BP 123/77
[2021-05-13 07:40] LABS: Basophils # (auto) 0.1 10 ^3/uL (0-0.2); Eosinophils # (auto) 0.3 10 ^3/uL (0-0.8); Monocytes # (auto) 0.5 10 ^3/uL (0-1.3); White Blood Cell 8.4 10^3/uL (4.4-10.8)
[2021-05-13 07:47] LABS: Basophils % (auto) 1.1 % (0.0-2.0); Hematocrit 27.8 % (36.0-46.0); Hemoglobin 8.6 g/dL (12.2-16.2); Lymphocytes # (auto) 2.6 10 ^3/uL (0.4-5.4); Lymphocytes % (auto) 30.5 % (10.0-50.0); Mean Corpuscular Hemoglobin 21.3 pg (28.0-32.0); Mean Corpuscular Volume 68.7 fL (80.0-100.0); Monocytes % (auto) 6.1 % (0.0-12.0); Neutrophils % (auto) 59.3 % (37.0-80.0); Nucleated Red Blood Cells % 0.1 %; Red Blood Cells 4.05 10^6/uL (4.0-5.20); Red Cell Distribution Width 23.2 % (11.8-14.3)
[2021-05-13 07:54] LABS: Calcium 8.8 mg/dL (8.5-10.1); Potassium 3.8 mmol/L (3.5-5.1)
[2021-05-13 07:57] LABS: BUN/Creatinine Ratio 10.3
[2021-05-13 09:00] VITALS: BP 130/64
[2021-05-13] MEDS: HYDROcodone-ACET 5/325MG TAB PO PRN ×2 (10:10→18:50)
[2021-05-13] MEDS: PIPERACILLIN-TAZOB 3.375GM 100 ML IV SCH (12:00)
[2021-05-13 13:00] VITALS: BP 127/76
[2021-05-13 17:00] VITALS: BP 106/76
[2021-05-13 18:41] VITALS: BP 106/76
== END 2021-05-13 21:30 | disposition home or self-care (01) | DRG 263 ==
LOC: ER 13:41 → OVERFLOW 21:17 → CENTRAL 23:09
PROVIDERS: ADMIT Surgery; ATTEND Surgery
PROC: 0FT44ZZ Resection of Gallbladder, Percutaneous Endoscopic Approach (ICD-10-PCS; principal; 2021-05-11 10:04)
DX: K80.00 Calculus of gallbladder with acute cholecystitis without obstruction (principal); E66.9 Obesity, unspecified; Z20.822 Contact with and (suspected) exposure to COVID-19; Z83.3 Family history of diabetes mellitus; Z68.41 Body mass index [BMI] 40.0-44.9, adult
CPT/HCPCS: 36415; 71045; 74177; 76705; 80048; 80053; 81001; 82150; 83690; 84702; 85025; 85610; 86850; 86900; 86901; 87426; 93005; 96361; 96365; 96368; 96372; 96375; C9113; G0378; J0330; J0696; J1100; J2001; J2250; J2405; J2543; J2704; J3490

== ENCOUNTER 2021-07-23 23:51 | Emergency (ER) | payer MEDICAID ==
[~2021-07-23] VITALS: Ht 160 cm; Wt 103.0 kg
[2021-07-23 23:59] VITALS: BP 126/57
[2021-07-24] MEDS ORDERED: AMOX500T3 PO (03:40)
== END 2021-07-24 03:49 | disposition home or self-care (01) ==
LOC: ER 23:51
DX: J20.9 Acute bronchitis, unspecified (principal)
CPT/HCPCS: 71045

== ENCOUNTER → 2024-06-23 | Outpatient (CLI) | payer MEDICAID ==
[~2024-06-23] MED LIST changes: +AMOX500T3 PO; -FERR-20 PO; +FERR325T24 PO; +IBUP-1456 PO; -IBUP800T27 PO
[2024-06-23 11:05] LABS: Basophils # (auto) 0.1 10 ^3/uL (0-0.2); Eosinophils # (auto) 0.1 10 ^3/uL (0-0.8); Lymphocytes # (auto) 1.4 10 ^3/uL (0.4-5.4); Monocytes # (auto) 0.3 10 ^3/uL (0-1.3); Monocytes % (auto) 5.1 % (0.0-12.0)
[2024-06-23 11:10] LABS: Basophils % (auto) 0.9 % (0.0-2.0); Eosinophils % (auto) 1.7 % (0.0-7.0); Hematocrit 39.8 % (36.0-46.0); Lymphocytes % (auto) 24.3 % (10.0-50.0); Mean Corpuscular Hemoglobin 26.2 pg (28.0-32.0); Mean Corpuscular Hgb Conc. 32.6 g/dL (32.0-36.0); Mean Corpuscular Volume 80.3 fL (80.0-100.0); Platelet Count (auto) 366 10^3/uL (140-450); Red Blood Cells 4.95 10^6/uL (4.0-5.20); Red Cell Distribution Width 15.9 % (11.8-14.3); White Blood Cell 5.9 10^3/uL (4.4-10.8)
[2024-06-23 11:37] LABS: Albumin 4.7 g/dL (3.2-4.8); Anion Gap 9 (5-15); BUN/Creatinine Ratio 8.1 (10.0-20.0); Bilirubin, Total 0.7 mg/dL (0.2-1.0); Calcium 9.8 mg/dL (8.7-10.4); Carbon Dioxide 23 mmol/L (20-31); Chloride 106 mmol/L (98-107); Cholesterol 142 mg/dL (< 200); Glucose 85 mg/dL (74-106); LDL Cholesterol 98 mg/dL (< 100); Potassium 3.7 mmol/L (3.5-5.1); Sodium 138 mmol/L (136-145); Total Protein 7.8 g/dL (5.7-8.2); Triglycerides 129 mg/dL (< 150)
[2024-06-23 11:44] LABS: Alanine Aminotransferase 9 U/L (7-40); Alkaline Phosphatase 129 U/L (46-116); Aspartate Aminotransferase 13 U/L (13-40); Blood Urea Nitrogen 5 mg/dL (9-23); HDL Cholesterol 30 mg/dL (40-59)
[2024-06-23 12:57] LABS: Hepatitis B Core IgM Negative (Negative); Hepatitis B Surface Antigen Negative (Negative)
[2024-06-23 15:12] LABS: RAPID PLASMA REAGIN REACTIVE (NONREACTIVE)
[2024-06-24 07:07] LABS: HSV 1 IgG Antibody Reactive (Non Reactive); HSV 2 IgG Antibody Non Reactive (Non Reactive)
[2024-06-25 05:08] LABS: Chlamydia Trachomatis, NAA Negative (Negative); Neisseria gonorrhoeae, NAA Negative (Negative)
== END | disposition home or self-care (01) ==
LOC: LAB 10:35
PROVIDERS: ATTEND Nurse Practitioner Family
DX: I10 Essential (primary) hypertension (principal); A53.9 Syphilis, unspecified; R73.9 Hyperglycemia, unspecified; E66.9 Obesity, unspecified; Z00.01 Encounter for general adult medical examination with abnormal findings
CPT/HCPCS: 36415; 80053; 80061; 82306; 83036; 84443; 85025; 86592; 86593; 86695; 86696; 86703; 86705; 86780; 86803; 87340